=== PATIENT | female | born 1960 | race Hispanic/Latino ===

== ENCOUNTER 2017-10-31 18:09 | Inpatient (IN) | payer OTHER ==
[~2017-10-31] VITALS: Ht 154.9 cm; Wt 66.7 kg
[~2017-10-31 18:09] MED LIST: GLIM2TAB3 GT; LORA0.5T2 PO
[2017-10-31] MEDS ORDERED: ACETAMINOPHEN EXTRA STRENGTH 500 MG TABLET ONE (18:22)
[2017-10-31] MEDS ORDERED: SODIUM CHLORIDE 0.9% 1000ML 2,000 ML IV ONE (18:22)
[2017-10-31 18:38] LABS: BASOPHILS % (AUTO) 0.1 % (0.0-5.0); HEMATOCRIT 34.8 % (36-48); LYMPHOCYTES % (AUTO) 8.9 % (21.0-51.0); MEAN CORPUSCULAR HEMOGLOBIN 26.6 pg (27.0-33.0); MEAN CORPUSCULAR HGB CONC 34.2 g/dL (32.0-36.0); MEAN CORPUSCULAR VOLUME 77.6 fL (79-99); MONOCYTES % (AUTO) 7.7 % (3.0-13.0); NEUTROPHILS % (AUTO) 83.3 % (40.0-77.0); PLATELET COUNT (AUTO) 190 K/uL (130-400); RED BLOOD CELL COUNT(AUTO) 4.48 MIL/uL (4.00-5.50); RED CELL DISTRIBUTION WIDTH 15.2 % (11.0-15.5); WHITE BLOOD COUNT (AUTO) 6.8 K/uL (4.8-10.8)
[2017-10-31 19:02] LABS: ALBUMIN 3.6 g/dL (3.5-5.0); BILIRUBIN,TOTAL 0.5 mg/dL (0.2-1.0); CREATININE 0.8 mg/dL (0.5-1.5); TOTAL PROTEIN, SERUM 7.6 g/dL (6.0-8.3)
[2017-10-31] MEDS ORDERED: ASPIRIN 325 MG TABLET ONE (19:09)
[2017-10-31 19:15] LABS: POTASSIUM 2.9 mmol/L (3.5-5.1)
[2017-10-31] MEDS ORDERED: POTASSIUM CHLORIDE 20 MEQ ERTAB PO ONE (19:32)
[2017-10-31] MEDS ORDERED: IOPAMIDOL-370 100 ML VIAL IV ONE (19:36)
[2017-10-31 20:37] LABS: APPEARANCE,URINE Clear (CLEAR); BILIRUBIN,URINE Negative (NEGATIVE); COLOR,URINE Yellow (YELLOW); GLUCOSE, URINE (UA) >=1000 mg/dL (NEGATIVE); KETONES,URINE 15 mg/dL (NEGATIVE); LEUKOCYTE ESTERASE ,URINE Negative (NEGATIVE); NITRATE,URINE Negative (NEGATIVE); OCCULT BLOOD,URINE Negative (NEGATIVE); PROTEIN,URINE Negative (NEGATIVE)
[2017-10-31] MEDS ORDERED: AZITHROMYCIN 500MG+NS 250ML 250 ML IV ONE (20:46)
[2017-10-31] MEDS ORDERED: CEFTRIAXONE SODIUM 1 GM ONE (20:46)
[2017-10-31] MEDS ORDERED: MAGNESIUM 2GM PREMIX 50ML 50 ML IV ONE (20:47)
[2017-10-31 20:48] LABS: BACTERIA,URINE None Seen /HPF (None Seen); RBC,URINE None Seen /HPF (0-1); SQUAMOUS EPITHELIAL CELL,UR 0-2 /LPF (0-2); WBC,URINE None Seen /HPF (0-1)
[2017-10-31] MEDS ORDERED: OSELTAMIVIR PHOSPHATE 75 MG CAP ONE (20:48)
[2017-10-31] MEDS ORDERED: NOREPINEPHRINE BITARTRATE 1 MG/1 ML ML IV ONE (22:06)
[2017-10-31 22:37] LABS: ABG BASE EXCESS -3.6 mmol/L (-2.0-3.0); ABG HCO3 19.8 mmol/L (21.0-28.0); ABG OXYGEN SATURATION 96.7 % (95.0-99.0); ABG PCO2 32 mmHg (32-45)
[2017-11-01] VITALS (20 sets, daily range): BP systolic 92–132; BP diastolic 49–80
[2017-11-01] MEDS ORDERED: NITROGLYCERIN 0.4 MG SL TAB SL PRN (00:15)
[2017-11-01] MEDS ORDERED: LIDOCAINE HCL-MPF 1% 2ML VIAL IVP PRN (00:15)
[2017-11-01] MEDS ORDERED: POTASSIUM CHLORIDE 10% ELIXIR 20 MEQ/15 ML UDCUP PO PRN (00:15)
[2017-11-01] MEDS ORDERED: ONDANSETRON HCL 4 MG/2 ML VIAL IV PRN (00:15)
[2017-11-01] MEDS ORDERED: POTASSIUM CHLORIDE 20 MEQ ERTAB PO PRN (00:15)
[2017-11-01] MEDS ORDERED: ACETAMINOPHEN 325 MG TAB PO PRN ×2 (00:15)
[2017-11-01 00:27] LABS: HEMATOCRIT 33.4 % (36-48); MEAN CORPUSCULAR HGB CONC 34.5 g/dL (32.0-36.0); MEAN CORPUSCULAR VOLUME 78.4 fL (79-99); PLATELET COUNT (AUTO) 183 K/uL (130-400); RED BLOOD CELL COUNT(AUTO) 4.26 MIL/uL (4.00-5.50); RED CELL DISTRIBUTION WIDTH 14.9 % (11.0-15.5); WHITE BLOOD COUNT (AUTO) 8.5 K/uL (4.8-10.8)
[2017-11-01 00:38] LABS: CREATININE 0.6 mg/dL (0.5-1.5); POTASSIUM 3.4 mmol/L (3.5-5.1)
[2017-11-01] MEDS ORDERED: ENOXAPARIN SODIUM 60 MG/0.6 ML SQ ONE (01:41)
[2017-11-01 01:50] LABS: CREATINE KINASE MB 2.1 ng/mL (0.5-3.6)
[2017-11-01] MEDS ORDERED: METF10004 PO (03:12)
[2017-11-01] MEDS ORDERED: LISI2.5T2 PO (03:12)
[2017-11-01] MEDS: LEVOFLOXACIN 500 MG/D5W 100 ML 100 ML IV SCH (03:48)
[2017-11-01] MEDS: INSULIN HUMULIN R 100 UNIT/ML 3ML SQ SCH ×4 (06:32→21:38)
[2017-11-01] MEDS: IPRATROPIUM/ALBUTEROL SULFATE 3 ML SOLUTION IH SCH ×3 (06:48→18:43)
[2017-11-01] MEDS: POTASSIUM CHLORIDE 20MEQ/100ML 100 ML IV PRN (07:36)
[2017-11-01 08:13] LABS: CREATINE KINASE MB 3.5 ng/mL (0.5-3.6)
[2017-11-01 08:17] LABS: TROPONIN I 1.51 ng/mL (0.00-0.06)
[2017-11-01] MEDS: ENOXAPARIN SODIUM 40 MG/0.4 ML SYRINGE SQ SCH (08:55)
[2017-11-01] MEDS: ASPIRIN 325 MG TABLET PO SCH (08:55)
[2017-11-01] MEDS: FAMOTIDINE 20MG TAB 20 MG TAB PO SCH ×2 (08:55→21:15)
[2017-11-01] MEDS: GUAIFENESIN-DM 200/20 MG 10 ML PO PRN (08:55)
[2017-11-01] MEDS: OSELTAMIVIR PHOSPHATE 75 MG CAP PO SCH ×2 (08:55→21:24)
[2017-11-01] MEDS ORDERED: MORPHINE SULFATE 2 MG/ML 1ML SYG IVP PRN (09:15)
[2017-11-01] MEDS ORDERED: METOPROLOL TARTRATE 25 MG TAB PO SCH (21:00)
[2017-11-02] MEDS: IPRATROPIUM/ALBUTEROL SULFATE 3 ML SOLUTION IH SCH ×5 (01:05→23:24)
[2017-11-02] MEDS: LEVOFLOXACIN 500 MG/D5W 100 ML 100 ML IV SCH (02:51)
[2017-11-02 03:38] VITALS: BP 113/60
[2017-11-02] MEDS: INSULIN HUMULIN R 100 UNIT/ML 3ML SQ SCH ×4 (07:01→22:15)
[2017-11-02 07:38] VITALS: BP 104/68
[2017-11-02 08:14] LABS: CHOLESTEROL 142 mg/dL (<200); HDL CHOLESTEROL 29 mg/dL (35-85); LDL DIRECT 87 mg/dL (0-99); TRIGLYCERIDES 121 mg/dL (30-200)
[2017-11-02] MEDS: OSELTAMIVIR PHOSPHATE 75 MG CAP PO SCH ×2 (08:47→20:09)
[2017-11-02] MEDS: FAMOTIDINE 20MG TAB 20 MG TAB PO SCH ×2 (08:47→20:09)
[2017-11-02] MEDS: ASPIRIN 325 MG TABLET PO SCH (08:47)
[2017-11-02] MEDS: METOPROLOL TARTRATE 25 MG TAB PO SCH ×2 (08:47→20:09)
[2017-11-02] MEDS: ENOXAPARIN SODIUM 40 MG/0.4 ML SYRINGE SQ SCH (08:48)
[2017-11-02 11:08] VITALS: BP 89/61
[2017-11-02 16:04] VITALS: BP 93/62
[2017-11-02 19:15] VITALS: BP 103/56
[2017-11-02 23:15] VITALS: BP 100/67
[2017-11-03] MEDS: LEVOFLOXACIN 500 MG/D5W 100 ML 100 ML IV SCH ×2 (02:12→23:45)
[2017-11-03 03:35] VITALS: BP 94/57
[2017-11-03 04:56] LABS: MEAN CORPUSCULAR HEMOGLOBIN 27.5 pg (27.0-33.0); MEAN CORPUSCULAR HGB CONC 35.6 g/dL (32.0-36.0); MEAN CORPUSCULAR VOLUME 77.3 fL (79-99); NUCLEATED RED BLOOD CELLS 0.1 % (0.0-0.19); PLATELET COUNT (AUTO) 190 K/uL (130-400); RED BLOOD CELL COUNT(AUTO) 4.14 MIL/uL (4.00-5.50); RED CELL DISTRIBUTION WIDTH 15.3 % (11.0-15.5); WHITE BLOOD COUNT (AUTO) 3.2 K/uL (4.8-10.8)
[2017-11-03 05:07] LABS: CREATININE 0.7 mg/dL (0.5-1.5); POTASSIUM 3.4 mmol/L (3.5-5.1)
[2017-11-03 05:28] LABS: B-TYPE NATRIURETIC PEPTIDE 443 pg/mL (0-100)
[2017-11-03] MEDS: GUAIFENESIN-DM 200/20 MG 10 ML PO PRN (05:55)
[2017-11-03] MEDS: IPRATROPIUM/ALBUTEROL SULFATE 3 ML SOLUTION IH SCH ×3 (05:57→19:46)
[2017-11-03] MEDS: INSULIN HUMULIN R 100 UNIT/ML 3ML SQ SCH ×4 (06:34→20:46)
[2017-11-03] MEDS: ASPIRIN 325 MG TABLET PO SCH (07:33)
[2017-11-03] MEDS: OSELTAMIVIR PHOSPHATE 75 MG CAP PO SCH ×2 (07:33→20:37)
[2017-11-03] MEDS: FAMOTIDINE 20MG TAB 20 MG TAB PO SCH ×2 (07:34→20:37)
[2017-11-03] MEDS: METOPROLOL TARTRATE 25 MG TAB PO SCH ×2 (07:34→20:37)
[2017-11-03] MEDS: ENOXAPARIN SODIUM 40 MG/0.4 ML SYRINGE SQ SCH (07:34)
[2017-11-03 07:37] VITALS: BP 107/64
[2017-11-03] MEDS: SPIRONOLACTONE 25 MG TAB PO SCH ×2 (09:08→21:00)
[2017-11-03 11:23] VITALS: BP 92/63
[2017-11-03 16:14] VITALS: BP 96/65
[2017-11-03 19:44] VITALS: BP 112/69
[2017-11-03] MEDS: ATORVASTATIN CALCIUM 10 MG TABLET PO SCH (20:37)
[2017-11-03 23:11] VITALS: BP 90/61
[2017-11-04] VITALS (12 sets, daily range): BP systolic 89–115; BP diastolic 57–74
[2017-11-04] MEDS: IPRATROPIUM/ALBUTEROL SULFATE 3 ML SOLUTION IH SCH ×5 (00:35→23:34)
[2017-11-04 05:11] LABS: HEMATOCRIT 32.8 % (36-48); MEAN CORPUSCULAR HEMOGLOBIN 27.1 pg (27.0-33.0); MEAN CORPUSCULAR HGB CONC 35.3 g/dL (32.0-36.0); MEAN CORPUSCULAR VOLUME 76.8 fL (79-99); NUCLEATED RED BLOOD CELLS 0.1 % (0.0-0.19); PLATELET COUNT (AUTO) 232 K/uL (130-400); RED BLOOD CELL COUNT(AUTO) 4.27 MIL/uL (4.00-5.50); RED CELL DISTRIBUTION WIDTH 15.2 % (11.0-15.5); WHITE BLOOD COUNT (AUTO) 3.3 K/uL (4.8-10.8)
[2017-11-04 05:22] LABS: CREATININE 0.7 mg/dL (0.5-1.5); POTASSIUM 3.4 mmol/L (3.5-5.1)
[2017-11-04] MEDS: POTASSIUM CHLORIDE 20MEQ/100ML 100 ML IV PRN (07:00)
[2017-11-04] MEDS: INSULIN HUMULIN R 100 UNIT/ML 3ML SQ SCH ×4 (07:27→21:20)
[2017-11-04] MEDS: ENOXAPARIN SODIUM 40 MG/0.4 ML SYRINGE SQ SCH (07:30)
[2017-11-04 07:58] LABS: INR 0.96 (0.85-1.15); PARTIAL THROMBOPLASTIN TIME 29.1 SEC (26.3-35.5); PROTHROMBIN TIME 10.1 SEC (9.6-11.6)
[2017-11-04] MEDS: ASPIRIN 325 MG TABLET PO SCH (09:00)
[2017-11-04] MEDS: SPIRONOLACTONE 25 MG TAB PO SCH ×2 (09:00→23:07)
[2017-11-04] MEDS: FAMOTIDINE 20MG TAB 20 MG TAB PO SCH ×2 (09:00→23:07)
[2017-11-04] MEDS: METOPROLOL TARTRATE 25 MG TAB PO SCH ×2 (09:33→21:00)
[2017-11-04] MEDS: OSELTAMIVIR PHOSPHATE 75 MG CAP PO SCH ×2 (09:33→23:07)
[2017-11-04] MEDS ORDERED: IOPAMIDOL-370 100 ML VIAL IV ONE (12:43)
[2017-11-04] MEDS ORDERED: ISOVUE-370 50ML VIAL IV ONE (12:43)
[2017-11-04] MEDS ORDERED: LIDOCAINE HCL 2% 20ML ONE (12:43)
[2017-11-04] MEDS ORDERED: NITROGLYCERIN 5 MG/ML 10 ML VIAL IV ONE (12:43)
[2017-11-04] MEDS ORDERED: BIVALIRUDIN 250 MG/VIAL IV ONE (13:23)
[2017-11-04] MEDS ORDERED: PRASUGREL HCL 10 MG TABLET ONE (13:46)
[2017-11-04] MEDS ORDERED: ASPIRIN 81MG TAB.CHEW ONE (14:01)
[2017-11-04] MEDS ORDERED: SODIUM CHLORIDE 0.9% 1000ML 1,000 ML IV SCH (14:16)
[2017-11-04 16:31] LABS: CREATINE KINASE MB 1.2 ng/mL (0.5-3.6)
[2017-11-04 16:37] LABS: TROPONIN I 0.9 ng/mL (0.00-0.06)
[2017-11-04] MEDS ORDERED: SODIUM CHLORIDE 0.9% 1000ML 1,000 ML IV ONE (22:46)
[2017-11-04] MEDS: ATORVASTATIN CALCIUM 10 MG TABLET PO SCH (23:07)
[2017-11-05] MEDS: LEVOFLOXACIN 500 MG/D5W 100 ML 100 ML IV SCH (00:17)
[2017-11-05 00:30] VITALS: BP 100/69
[2017-11-05 03:27] VITALS: BP 97/67
[2017-11-05 04:41] LABS: HEMATOCRIT 33.4 % (36-48); MEAN CORPUSCULAR HEMOGLOBIN 27.8 pg (27.0-33.0); MEAN CORPUSCULAR VOLUME 77.2 fL (79-99); PLATELET COUNT (AUTO) 241 K/uL (130-400); RED BLOOD CELL COUNT(AUTO) 4.33 MIL/uL (4.00-5.50); RED CELL DISTRIBUTION WIDTH 15.1 % (11.0-15.5); WHITE BLOOD COUNT (AUTO) 3.6 K/uL (4.8-10.8)
[2017-11-05 05:07] LABS: CREATINE KINASE MB 1.3 ng/mL (0.5-3.6); CREATININE 0.7 mg/dL (0.5-1.5); POTASSIUM 3.8 mmol/L (3.5-5.1)
[2017-11-05 05:16] LABS: TROPONIN I 0.95 ng/mL (0.00-0.06)
[2017-11-05] MEDS: INSULIN HUMULIN R 100 UNIT/ML 3ML SQ SCH ×4 (06:14→21:00)
[2017-11-05] MEDS: IPRATROPIUM/ALBUTEROL SULFATE 3 ML SOLUTION IH SCH ×4 (06:27→23:24)
[2017-11-05 07:36] VITALS: BP 97/59
[2017-11-05] MEDS: METOPROLOL TARTRATE 25 MG TAB PO SCH ×2 (09:47→21:00)
[2017-11-05] MEDS: SPIRONOLACTONE 25 MG TAB PO SCH ×2 (09:47→20:54)
[2017-11-05] MEDS: PRASUGREL HCL 10 MG TABLET PO SCH (09:47)
[2017-11-05] MEDS: FAMOTIDINE 20MG TAB 20 MG TAB PO SCH ×2 (09:47→20:54)
[2017-11-05] MEDS: ASPIRIN 325 MG TABLET PO SCH (09:47)
[2017-11-05] MEDS: OSELTAMIVIR PHOSPHATE 75 MG CAP PO SCH (09:47)
[2017-11-05] MEDS: ENOXAPARIN SODIUM 40 MG/0.4 ML SYRINGE SQ SCH (09:48)
[2017-11-05 11:14] VITALS: BP 88/63
[2017-11-05 16:14] VITALS: BP 95/65
[2017-11-05 19:38] VITALS: BP 91/57
[2017-11-05] MEDS: ATORVASTATIN CALCIUM 10 MG TABLET PO SCH (20:54)
[2017-11-06] VITALS (7 sets, daily range): BP systolic 92–104; BP diastolic 61–67
[2017-11-06] MEDS: LEVOFLOXACIN 500 MG/D5W 100 ML 100 ML IV SCH (01:19)
[2017-11-06] MEDS: IPRATROPIUM/ALBUTEROL SULFATE 3 ML SOLUTION IH SCH ×3 (06:36→19:23)
[2017-11-06] MEDS: INSULIN HUMULIN R 100 UNIT/ML 3ML SQ SCH ×4 (06:37→21:18)
[2017-11-06] MEDS: ASPIRIN 325 MG TABLET PO SCH (09:00)
[2017-11-06] MEDS: FAMOTIDINE 20MG TAB 20 MG TAB PO SCH ×2 (09:00→20:44)
[2017-11-06] MEDS: METOPROLOL TARTRATE 25 MG TAB PO SCH (09:00)
[2017-11-06] MEDS: PRASUGREL HCL 10 MG TABLET PO SCH (09:00)
[2017-11-06] MEDS: SPIRONOLACTONE 25 MG TAB PO SCH ×2 (09:00→20:44)
[2017-11-06] MEDS: ENOXAPARIN SODIUM 40 MG/0.4 ML SYRINGE SQ SCH (09:01)
[2017-11-06] MEDS: ATORVASTATIN CALCIUM 10 MG TABLET PO SCH (20:44)
[2017-11-06] MEDS ORDERED: METOPROLOL TARTRATE 25 MG TAB PO SCH (21:00)
[2017-11-07] MEDS: IPRATROPIUM/ALBUTEROL SULFATE 3 ML SOLUTION IH SCH ×5 (01:36→23:45)
[2017-11-07] MEDS: LEVOFLOXACIN 500 MG/D5W 100 ML 100 ML IV SCH (01:37)
[2017-11-07 03:56] VITALS: BP 93/67
[2017-11-07] MEDS: INSULIN HUMULIN R 100 UNIT/ML 3ML SQ SCH ×4 (06:26→20:36)
[2017-11-07 07:35] VITALS: BP 96/63
[2017-11-07] MEDS ORDERED: METO25 PO (08:50)
[2017-11-07] MEDS ORDERED: ASPI-1197 PO (08:50)
[2017-11-07] MEDS ORDERED: SPIR25TA PO (08:50)
[2017-11-07] MEDS ORDERED: ATOR10 PO (08:50)
[2017-11-07] MEDS ORDERED: PRAS10TA6 PO (08:50)
[2017-11-07] MEDS: SPIRONOLACTONE 25 MG TAB PO SCH ×2 (10:00→21:51)
[2017-11-07] MEDS: FAMOTIDINE 20MG TAB 20 MG TAB PO SCH ×2 (10:00→21:51)
[2017-11-07] MEDS: ASPIRIN 325 MG TABLET PO SCH (10:00)
[2017-11-07] MEDS: PRASUGREL HCL 10 MG TABLET PO SCH (10:00)
[2017-11-07] MEDS: METOPROLOL TARTRATE 25 MG TAB PO SCH ×2 (10:00→21:51)
[2017-11-07] MEDS: ENOXAPARIN SODIUM 40 MG/0.4 ML SYRINGE SQ SCH (10:01)
[2017-11-07 10:50] VITALS: BP 94/63
[2017-11-07] MEDS ORDERED: MORPHINE SULFATE 4 MG/1ML SYG IVP PRN (15:30)
[2017-11-07 15:58] VITALS: BP 86/58
[2017-11-07 19:37] VITALS: BP 86/56
[2017-11-07] MEDS: ATORVASTATIN CALCIUM 10 MG TABLET PO SCH (21:51)
[2017-11-07 23:27] VITALS: BP 98/62
[2017-11-08] MEDS: LEVOFLOXACIN 500 MG/D5W 100 ML 100 ML IV SCH (01:27)
[2017-11-08 03:16] VITALS: BP 96/65
[2017-11-08] MEDS: IPRATROPIUM/ALBUTEROL SULFATE 3 ML SOLUTION IH SCH ×3 (05:53→18:51)
[2017-11-08] MEDS: INSULIN HUMULIN R 100 UNIT/ML 3ML SQ SCH ×3 (06:34→16:30)
[2017-11-08 07:24] VITALS: BP 111/53
[2017-11-08] MEDS: ASPIRIN 325 MG TABLET PO SCH (08:32)
[2017-11-08] MEDS: FAMOTIDINE 20MG TAB 20 MG TAB PO SCH (08:32)
[2017-11-08] MEDS: METOPROLOL TARTRATE 25 MG TAB PO SCH (08:33)
[2017-11-08] MEDS: ENOXAPARIN SODIUM 40 MG/0.4 ML SYRINGE SQ SCH (08:33)
[2017-11-08] MEDS: PRASUGREL HCL 10 MG TABLET PO SCH (08:33)
[2017-11-08] MEDS: SPIRONOLACTONE 25 MG TAB PO SCH (08:33)
[2017-11-08 11:15] VITALS: BP 89/59
[2017-11-08 16:33] VITALS: BP 96/61
[2017-11-08 19:21] VITALS: BP 105/64
== END 2017-11-08 20:20 | disposition home or self-care (01) | DRG 853 ==
LOC: EDH 18:09 → OBSVTOIN 20:00 → INTOOBSV 20:00 → EDHIP 20:00 → UNDOADMOB 20:00 → 2AH 20:54 → EDHIP 20:54 → 2AH 23:49 → EDHIP 23:49 → 2CH 11-01 02:24 → EDHIP 11-01 02:24 → 2DH 11-02 17:43 → 2CH 11-02 17:43
PROVIDERS: ADMIT Internal Medicine; ATTEND Internal Medicine
PROC: 5A09357 Assistance with Respiratory Ventilation, Less than 24 Consecutive Hours, Continuous Positive Airway Pressure (ICD-10-PCS; 2017-11-01)
PROC: 027034Z Dilation of Coronary Artery, One Artery with Drug-eluting Intraluminal Device, Percutaneous Approach (ICD-10-PCS; principal; 2017-11-04)
PROC: 4A023N7 Measurement of Cardiac Sampling and Pressure, Left Heart, Percutaneous Approach (ICD-10-PCS; 2017-11-04)
PROC: B2111ZZ Fluoroscopy of Multiple Coronary Arteries using Low Osmolar Contrast (ICD-10-PCS; 2017-11-04)
DX: A41.9 Sepsis, unspecified organism (principal); R65.21 Severe sepsis with septic shock; I21.4 Non-ST elevation (NSTEMI) myocardial infarction; J11.00 Influenza due to unidentified influenza virus with unspecified type of pneumonia; R57.0 Cardiogenic shock; I11.0 Hypertensive heart disease with heart failure; J90 Pleural effusion, not elsewhere classified; I50.22 Chronic systolic (congestive) heart failure; E11.9 Type 2 diabetes mellitus without complications; E87.6 Hypokalemia; I25.10 Atherosclerotic heart disease of native coronary artery without angina pectoris; I25.5 Ischemic cardiomyopathy; I25.2 Old myocardial infarction; Z95.5 Presence of coronary angioplasty implant and graft
CPT/HCPCS: 36415; 36600; 71045; 71275; 76705; 80048; 80053; 80061; 81001; 82550; 82553; 82803; 82948; 83605; 83735; 83874; 83880; 84443; 84484; 85025; 85027; 85610; 85730; 87040; 87088; 87804; 93005; 93306; 93458; 94640; 94660; 94664; C1725; C1769; C1887; C1894; C9600; G0378; J0456; J0583; J0696; J1644; J1650; J1815; J1956; J2405; J3475; J3480; J3490; J7030; Q9967

== ENCOUNTER → 2018-02-01 | Outpatient (CLI) | payer OTHER ==
[~2018-02-01] MED LIST changes: +ASPI-1197 PO; +ATOR10 PO; +LISI2.5T2 PO; +METF10004 PO; +METO25 PO; +PRAS10TA6 PO; +SPIR25TA PO
== END | disposition home or self-care (01) ==
LOC: SHCH 12:12
PROVIDERS: ATTEND Internal Medicine Cardiovascular Disease
DX: I42.9 Cardiomyopathy, unspecified (principal)
CPT/HCPCS: 93306

== ENCOUNTER 2025-01-23 17:33 | Emergency (ER) | payer BC ==
[~2025-01-23] VITALS: Ht 154.9 cm; Wt 63.5 kg
[~2025-01-23 17:33] MED LIST changes: -GLIM2TAB3 GT; +GLIM2TAB30 GT; +LISI2.5T13 PO; -LISI2.5T2 PO; +METF-446 PO; -METF10004 PO
[2025-01-23] MEDS ORDERED: LIDOCAINE HCL 1% 20 ML VIAL INJ ONE (18:30)
[2025-01-23] MEDS ORDERED: CEPH500T PO (19:07)
--- NOTE | 2025-01-23 19:08 | ERN ---
General Chief Complaint: Laceration/Avulsion Stated Complaint: DEEP CUT TO LEFT THUMB Time Seen by MD: 17:35 Time Seen by Midlevel: 17:35 Source: patient History of Present Illness Initial Comments 64-year-old female who presents to the emergency department due to left hand finger laceration. Patient reports she cut her left thumb with a can reject opener and filler. Unknown last tetanus. Denies further associated symptoms. PMHx DM, hypercholesterolemia, HTN Allergies: Coded Allergies: No Known Drug Allergies (Verified Allergy, Unknown, 05/28/14) ibuprofen (Unverified Allergy, Unknown, 11/01/17) STATES SHE GETS HIVES Home Meds Active Scripts Cephalexin (Cephalexin) 500 Mg Tablet, 1 TAB PO BID for 7 Days, #14 TAB 0 Refills Prov:RAÚL DOSHI 01/23/25 Atorvastatin Calcium (LIPITOR) 10 Mg Tab, 5 MG PO HS, #30 TAB Prov:DARIN DAVE MD 11/07/17 Aspirin (Aspirin) 81 Mg Tab.chew, 81 MG PO DAILY, #30 TAB.CHEW Prov:DARIN DAVE MD 11/07/17 Spironolactone (Aldactone) 25 Mg Tablet, 25 MG PO BID, #30 TAB Prov:DARIN DAVE MD 11/07/17 Prasugrel HCl (Effient) 10 Mg Tablet, 10 MG PO DAILY, #30 TAB Prov:DARIN DAVE MD 11/07/17 Metoprolol Tartrate (Lopressor) 25 Mg Tab, 25 MG PO BID, #60 TAB Prov:DAIRN DAVE MD 11/07/17 Reported Medications Lisinopril (Lisinopril) 2.5 Mg Tablet, 2.5 MG PO DAILY, TAB 11/01/17 Metformin HCl (Metformin HCl) 1,000 Mg Tablet, 1000 MG PO BID, TAB 11/01/17 Lorazepam (Lorazepam) 0.5 Mg Tablet, 0.5 MG PO Q6H PRN for ANXIETY/AGITATION, TAB 05/28/14 Glimepiride (Glimepiride) 2 Mg Tablet, 2 MG GT DAILY, TAB 05/28/14 Past Medical History Past Medical History: Diabetes-Type II, High Cholesterol, Hypertension, AL Past Surgical History: Other Surgical History Other: STENTS ROS Dictation Constitutional: Negative for fever,chills, and weight loss Eyes: Negative for injury, pain,redness, and discharge ENT: Negative for injury,pain or swelling Cardiovascular: Negative for chest pain, palpitations, and edema Respiratory: Negative for shortness of breath, cough, and wheezing, Abdomen/GI: Negative for abdominal pain, nausea, vomiting, diarrhea, and constipation Back: Negative for injury and pain : Negative for painful urination, bleeding or discharge MS/Extremity: Negative for injury and deformity Skin: Positive for finger laceration Negative for rash, and discoloration Neuro: Negative for headache, weakness, numbness, tingling, and seizure Psych: Negative for suicide ideation, homicidal ideation, and hallucinations Physical Exam Physical Exam Dictation General: awake, alert, no acute distress Head/Face: Normocephalic, atraumatic Eyes: PERRL, EOMI, normal conjunctiva ENT: oral cavity clear, oral mucosa moist Neck: Supple, normal range of motion Cardiovascular: RRR, normal S1/S2 Respiratory: CTAB, no respiratory distress Skin: Warm, dry, normal turgor, no rash. 2 cm laceration noted to the left thumb palmar aspect MS/Extremity: Pulses equal, no cyanosis, neurovascular intact, FROM Neuro: COAx4, GCS 15, strength 5/5, CN 2-12 intact, normal cerebellar exam, normal gait Psych: Normal behavior, mood, and affect normal MDM MDM: Differential diagnosis: Laceration, tendon involvement, wound infection Rationale:64-year-old female who presents to the emergency department due to left hand finger laceration. Patient reports she cut her left thumb with a can reject opener and filler. Unknown last tetanus. Denies further associated symptoms. PMHx DM, hypercholesterolemia, HTN Per physical examination 2 cm laceration noted to the left 1st digit palmar aspect, neurovascularly intact, normal range of motion. Laceration repaired in the ED with no complications. Patient was educated on findings and diagnosis. Advised to follow up with PCP. Return to the emergency department if any worsening symptoms. Patient verbalized understanding patient stable for discharge. Antibiotics prescribed for outpatient treatment. There are no social concerns with this patient. I independently interpreted the test that were performed, results were reviewed by me and considered findings on radiology if ordered. Medical management and examination interpretation discussions were had by me with other qualified healthcare professionals as indicated for the patient's care. ED Course Orders Procedure Category Date Status Time Lidocaine Hcl 1% 20ml PHA 4/30/25 Complete Vial (Lidocaine Hc 18:30 Tetanus,Diphtheria PHA 01/23/25 Complete Tox [Adult] (Diphther 18:30 Current Medications Medications (Trade) Dose Ordered Sig/Nanci Route PRN Reason Start Time Stop Time Status Last Admin Dose Admin Lidocaine HCl (Lidocaine HCl 1% 20ml Vial) 10 ml ONCE ONCE INJ 01/23/25 18:30 01/23/25 18:31 DC Tetanus/ Diphtheria Toxoids Adsorbed (DiphthERIA-teTANUS TOXOID [ADULT]/ DECAVAC) 0.5 ml ONCE ONCE IM 01/23/25 18:30 01/23/25 18:31 DC 01/23/25 19:16 Vital Signs Date Time Temp Pulse Resp B/P (MAP) Pulse Ox O2 Delivery O2 Flow Rate FiO2 01/23/25 19:42 98.4 80 16 147/87 98 Room Air* 0 21 01/23/25 18:03 98.4 86 16 151/92 98 Room Air 0 01/23/25 18:03 98.4 86 16 151/92 98 Room Air* 0 21 Procedure Dictation Laceration repair Procedure duration: 15 minutes Left 1st digit 2 cm laceration palmar aspect 3-0 nylon Four stitches placed Patient consented No complications Patient tolerated well Performed by self DX & DISP Disposition: Discharge Departure Impression: Primary Impression: Finger laceration Condition: Stable Scripts Cephalexin (Cephalexin) 500 Mg Tablet 1 TAB PO BID for 7 Days, #14 TAB 0 Refills Prov: RAÚL DOSHI 01/23/25 Additional Instructions: Discharge home. Rest. Follow up with primary care DrFanny in 24 hours. Return to the ER for any acute changes or worsening symptoms. If any medications were prescribed take as directed. Okay to continue home medications unless otherwise discussed during your visit in the emergency room today. Patient was also advised to follow-up with primary care physician in 1 to 2 days for continued monitoring. Referrals: ISHA BURGOS (PCP) I performed the substantive portion of the visit. I have reviewed and personally made and approve the management plan that is documented in the notes by myself or the [facility]. I acknowledge full responsibility for the patient's management plan. RAÚL DOSHI Jan 23, 2025 19:08 BLAIRE HAYES DO January 25, 2025 10:13
[2025-01-23] MEDS: teTANUS/diphthERIA TOXOID [ADULT] 0.5 ML VIAL IM ONE (19:16)
[2025-01-23 19:42] VITALS: BP 147/87; PULSE 80; RESP 16; TEMP 98.4; O2SAT 98
== END 2025-01-23 19:42 | disposition home or self-care (01) ==
LOC: EDH 17:33
DX: S61.012A Laceration without foreign body of left thumb without damage to nail, initial encounter (principal); E11.9 Type 2 diabetes mellitus without complications; E78.00 Pure hypercholesterolemia, unspecified; I10 Essential (primary) hypertension; Z79.02 Long term (current) use of antithrombotics/antiplatelets; Z79.82 Long term (current) use of aspirin; Z79.84 Long term (current) use of oral hypoglycemic drugs; Z79.899 Other long term (current) drug therapy; Z88.6 Allergy status to analgesic agent; Z98.890 Other specified postprocedural states; W27.8XXA Contact with other nonpowered hand tool, initial encounter; Y93.89 Activity, other specified; Y92.89 Other specified places as the place of occurrence of the external cause; Y99.8 Other external cause status
CPT/HCPCS: 12001; 90471; 90714; 99284